=== PATIENT | male | born 2000 | race Caucasian/White ===

== ENCOUNTER 2019-10-07 14:35 | Emergency (ER) | payer OTHER ==
[~2019-10-07] VITALS: Ht 172.7 cm; Wt 70.2 kg
[2019-10-07] MEDS ORDERED: CENTANY30 GM TOP (15:03)
[2019-10-07] MEDS ORDERED: AUGMENTIN 875-1 EACH PO (15:03)
[2019-10-07] MEDS ORDERED: EPIPEN0.3 MG/0.1 IM (15:03)
[2019-10-07 15:21] VITALS: BP 137/86
== END 2019-10-07 15:22 | disposition home or self-care (01) ==
LOC: M.ERS 14:35
DX: S61.212A Laceration without foreign body of right middle finger without damage to nail, initial encounter (principal); Z76.0 Encounter for issue of repeat prescription; Z90.49 Acquired absence of other specified parts of digestive tract; Z91.030 Bee allergy status; W26.8XXA Contact with other sharp object(s), not elsewhere classified, initial encounter; Y93.89 Activity, other specified; Y92.89 Other specified places as the place of occurrence of the external cause; Y99.8 Other external cause status